=== PATIENT | male | born 1995 | race Caucasian/White ===

== ENCOUNTER 2017-08-03 17:49 | Emergency (ER) | payer OTHER ==
--- NOTE | 2017-08-03 18:02 | ED Physician Documentation ---
General Adult - HISTORIAN Historian: patient - HPI Chief Complaint: Upper Extremity Problem Additional Information: Patient was sleeping and when he awoke he noticed that his RUE appeared to be redder then the left, started to have some pain in the right armpit area. No modifying factors to the pain in the axilla area, no precipitating factor noted. Patient states that he also has some weakness in the RUE. No previous problems or injuries noted. Patient denies any cervical neck problems. Patient does have some crepitus in his right shoulder area. Patient is not had any previous dislocations or shoulder separations. Patient states two days ago he awoke with both his legs numb, pins and needle sensation. Took about 15 minutes to resolve. 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 Last use was Jul 18. Onset: hours (1 hour) Timing: still present - ROS CONST: chills (cold sweats). denies: fever - PAST HX Past History: none Other History: none Surgeries/Procedures: other (bilater inguinal hernia repair) Immunizations: denies: influenza Allergies/Adverse Reactions: Allergies Allergy/AdvReac Type Severity Reaction Status Date / Time No Known Allergies Allergy Verified 08/03/17 17:57 Home Medications: Ambulatory Orders Medication Instructions Recorded Acetaminophen [Tylenol Extra 1,000 mg PO Q4 PRN 08/03/17 Strength] Ibuprofen [Advil] 400 mg PO Q4 PRN 08/03/17 - SOCIAL HX Smoking History: less than 1 pack/day (10 cig per day) Alcohol Use: none Drug Use: methamphetamines (last use Jul 18) - FAMILY HX Family History: No - REVIEWED ASSESSMENTS Nursing Assessment Reviewed: Yes Vitals Reviewed: Yes Progress - Progress Progress: 18:56 Symptoms seem to be abating at this time. General Adult Physical Exam - PHYSICAL EXAM GENERAL APPEARANCE: mild distress EENT: ENT inspection normal NECK: normal inspection, thyroid normal, supple, other (no tenderness to palpation, no bony abnl noted.). No: lymphadenopathy, stiff neck RESPIRATORY: no resp distress, chest non-tender, breath sounds normal. No: wheezes, rales, rhonchi CVS: reg rate & rhythm, heart sounds normal, equal pulses, no murmur ABDOMEN: soft, no organomegaly, normal bowel sounds BACK: normal inspection SKIN: warm/dry, normal color, other (some weakness to all muscle groups from shoulder distally on admission, at time of discharge almost back to normal.) EXTREMITIES: normal range of motion, tenderness (Tenderness to palpation over the poserior axillary area, no bony abnl or soft tissue abnl noted. LN normal. FROM) NEURO: oriented X3, CN's nml as tested, sensation nml, mood/affect nml, cognition normal, other. No: motor nml (On admission patient had some weakness to all motor groups in the RUE from the shoulder distally, includingAbd and Add , shoulder extensors. Has FROM without difficutlies. Motor exam is inconsistent on reevaluation. Almost back to normal at time of discharge. ) Discharge Clincal Impression: Numbness and tingling of right arm Referrals: Ever Soto MD [Primary Care Provider] - 2 Days Additional Instructions: To continue to use your arm normally. If you continue to have problems to see Dr Soto on Saturday or return to the ED if your symptoms get worse. Look for any precipitating or modifying factors of your symptoms. Condition: Stable Disposition: 01 HOME, SELF-CARE Decision to Admit: NO Date of Decison to Admit: 08/03/17 Decision Time: 19:17
[2017-08-03 18:29] LABS: BASOPHILS % 0.7 (0.0-1.5); EOSINOPHILS % 3.8 % (0.0-6.8); MEAN CORPUSCULAR HEMOGLOBIN 29.4 pg (28.0-34.0); MEAN CORPUSCULAR VOLUME 88.8 fl (80.0-100.0); MONOCYTES % 3.9 % (0.0-11.0); NEUTROPHILS # 8.2 # k/uL (1.4-7.7)
[2017-08-03 18:45] LABS: eGFR (African) > 60; eGFR (Non-African) > 60
[2017-08-03 21:35] VITALS: BP 120/68
== END 2017-08-03 19:50 | disposition home or self-care (01) ==
LOC: ED 17:49
DX: R20.0 Anesthesia of skin (principal); R20.2 Paresthesia of skin
CPT/HCPCS: 80053; 82550; 85025; 99283